=== PATIENT | male | born 1970 | race Caucasian/White ===

== ENCOUNTER 2016-10-10 14:09 | Emergency (ER) | payer BC, OTHER ==
[~2016-10-10] VITALS: Ht 170.2 cm; Wt 103.1 kg
[2016-10-10 14:11] VITALS: Ht 170.2 cm; Wt 103.1 kg
--- NOTE | 2016-10-10 14:57 | ERD ---
ER Documentation Chief Complaint Date/Time DATE: 10/10/16 TIME: 14:52 Chief Complaint swelling in L calf x 4 days HPI 46-year-old male with a history of type 2 diabetes, hypertension, high cholesterol presents to the emergency department with complaints of pain and redness to the left lateral calf. Patient states he noticed a small red spot on the left lateral calf 4 days ago and since that time the redness and pain have gradually increased. Patient states his pain is currently a 5 out of 10 and worse upon palpation of the area. He states the pain subsides when he is at rest. Patient notes at work he is required to stand all day. Patient denies fever, chills, nausea, vomiting. Patient is able to bear weight and denies any numbness or tingling to the area. Patient denies any shortness of breath or chest pain. Patient denies any history of IV drug use. ROS All systems reviewed and are negative except as per history of present illness. Physical Exam Vitals Vital Signs Date Time Temp Pulse Resp B/P Pulse Ox O2 Delivery O2 Flow Rate FiO2 10/10/16 14:11 97.6 104 18 146/82 97 Physical Exam Const: Well-developed, well-nourished, in no acute distress Head: Atraumatic Eyes: Normal Conjunctiva Neck: Full range of motion..~ No meningismus. Resp: Clear to auscultation bilaterally Cardio: Regular rate and rhythm, no murmurs Abd: Soft, non tender, non distended. Normal bowel sounds Skin: 2.5 cm area of erythema and induration isolated to the left lateral calf. Lesion is mildly functional and tender to palpation. There is no evidence of cellulitis extending proximally or distally on the left lower extremity. No evidence of cyanosis or gangrene. No evidence of foreign body. No laceration. Back: No midline or flank tenderness Ext: No cyanosis, or edema Neur: Awake and alert Psych: Normal Mood and Affect Results 24 hrs Current Medications Medications (Trade) Dose Ordered Sig/Philomena Route PRN Reason Start Time Stop Time Status Last Admin Dose Admin Lidocaine (Xylocaine 1% (Mpf)) 10 ml ONCE PRN INJ ID 10/10/16 15:00 Ibuprofen (Motrin) 600 mg ONCE ONCE PO 10/10/16 15:00 10/10/16 15:01 DC 10/10/16 15:17 Procedures/MDM Abscess Incision and Drainage with irrigation by me: Location: Left lateral calf Anesthesia: Local 1% Lidocaine Technique: Serosanguineous fluid aspirated using large gauge needle. Pressure applied to area and there was no sign of purulent drainage. Packing: None Complications: Neurovascularly intact post procedure 48 hour wound check. Scar minimization instructions given. Patient's skin symptoms have stabilized while they have been evaluated in the department and are appropriate for outpatient care and work up. Exam and w/u not consistent w/ sepsis, deep space infection, or foreign body. Patient's clinical picture is consistent with superficial skin abscess. Patient is well-appearing, in no acute distress. Vital signs reviewed. Patient is afebrile, non-tachycardic, not hypoxic prior to discharge. At this time I have low suspicion for systemic bacterial infection, sepsis, DVT, PE. Patient placed on antibiotic therapy and instructed to return in 48 hours for a wound check. Based on patient's history of present illness and physical examination the decision was made to discharge. The patient was re-evaluated after ED treatment and stabilizing measures, and symptoms have improved. There is no evidence of life threatening injuries or illnesses at this time. On re-examination, patient resting in no distress, stable vital signs, reports feeling better and safe for discharge with outpatient follow up with PMD in 1-2 days. Patient given return precautions. MIKAL JAIN PA-C Oct 10, 2016 14:57
[2016-10-10] MEDS ORDERED: LIDOCAINE 1% (MPF) 30 ML INJ INJ PRN (15:00)
[2016-10-10] MEDS ORDERED: IBUPROFEN 600 MG TAB PO ONE (15:00)
[2016-10-10] MEDS ORDERED: BACITUD TOP (15:45)
[2016-10-10] MEDS ORDERED: IBUP-1542 PO (15:45)
[2016-10-10] MEDS ORDERED: HYDR-902 PO (15:45)
[2016-10-10] MEDS ORDERED: CEPH-443 PO (15:45)
[2016-10-10] MEDS ORDERED: BACTRIM PO (15:45)
== END 2016-10-10 15:53 | disposition home or self-care (01) ==
LOC: FTE 14:09
DX: L02.415 Cutaneous abscess of right lower limb (principal); E11.9 Type 2 diabetes mellitus without complications; I10 Essential (primary) hypertension
CPT/HCPCS: 10160; Z7502; Z7610